=== PATIENT | male | born 1975 | race Caucasian/White ===

== ENCOUNTER 2019-11-09 04:59 | Emergency (ER) | payer BC ==
[~2019-11-09] VITALS: Ht 167.6 cm; Wt 94.1 kg
[2019-11-09 05:42] VITALS: BP 117/81
== END 2019-11-09 05:42 | disposition home or self-care (01) ==
LOC: ED 04:59
DX: R10.31 Right lower quadrant pain (principal); I10 Essential (primary) hypertension